=== PATIENT | male | born 1985 | race African-American/Black ===

== ENCOUNTER 2022-02-13 00:34 | Emergency (ER) | payer SELFPAY ==
[~2022-02-13] VITALS: Ht 172.7 cm; Wt 74.8 kg
--- NOTE | 2022-02-13 01:32 | ED General ---
General Chief Complaint: Chest Wall Stated Complaint: CP,FACE & FINGERS NUMB Nursing Triage Note: c/o epigastric pain, numbness/tingling, dizziness in left arm starting approx. 2100 while watching tv. reports pain gone now. still has tingling in fingers on left hand. Source of Information: Patient History of Present Illness Date Seen by Provider: Feb 13, 2022 Time Seen by Provider: 01:00 Initial Comments PT ARRIVES VIA POV FROM HOME STATES AROUND 2129 TONIGHT, WHILE SITTING AND WATCHING TV, HE BEGAN TO HAVE MULTIPLE SYMPTOMS ALL AT ONCE: -CHEST PAIN --"LASTED A SPLIT SECOND" -BROKE OUT IN A SWEAT -FELT DIZZY--"LIKE I WAS FLOATING--NOT SPINNING" -LEFT ARM NUMBNESS AND TINGLING AND "IRRITATING PAIN" THAT WENT ALL THE WAY DOWN TO HIS HAND. THIS IS BETTER ON ARRIVAL TO ER, BUT STATES IT OCCASIONALLY FEELS A LITTLE NUMB AND TINGLY OFF AND ON. -STATES HE HAD A SLIGHT HEADACHE -VISION WAS A LITTLE "OFF" BUT NOT BLURRY VISION OR DOUBLE VISION. -ALSO HAD A LITTLE BIT OF EPIGASTRIC PAIN NO MOTOR DEFICITS NO FEVER NO URI SYMPTOMS NO SHORTNESS OF BREATH NO PALPITATIONS NO SYNCOPE NO NAUSEA/VOMITING/DIARRHEA NO HISTORY OF SIMILAR PT DENIES ANY MEDICAL PROBLEMS, BUT STATES HE NEVER GOES TO THE DR. PT IS ADOPTED AND DOES NOT KNOW ANY FAMILY HISTORY. PT SMOKES 1/2 PPD, DENIES ETOH USE, AND STATES HE HAS NOT USED MARIJUANA IN 2 MONTHS, AND DENIES ANY OTHER DRUG USE PT IS NOT COVID VACCINATED NO KNOWN SICK CONTACTS PT DOES NOT WORK. PCP: NONE STATES HE "JUST MOVED HERE 2 MONTHS AGO" FROM [place], [place]. DID NOT HAVE A DR. THERE EITHER. Allergies and Home Medications Allergies Coded Allergies: No Known Drug Allergies (Unverified , 02/13/22) Patient Home Medication List Home Medication List Reviewed: Yes No Active Prescriptions or Reported Meds Review of Systems Review of Systems Constitutional: see HPI, diaphoresis, dizziness EENTM: see HPI Respiratory: no symptoms reported; No cough, No short of breath Cardiovascular: see HPI, chest pain; No edema, No palpitations, No syncope Gastrointestinal: see HPI; No diarrhea, No nausea, No vomiting; other (EPIGASTRIC PAIN ) Genitourinary: no symptoms reported Musculoskeletal: no symptoms reported; No back pain, No neck pain Skin: no symptoms reported Psychiatric/Neurological: See HPI Hematologic/Lymphatic: No Symptoms Reported Immunological/Allergic: no symptoms reported Past Zvytvxs-Sekklx-Oknyqz Hx Patient Social History Tobacco Use?: Yes Tobacco type used: Cigarettes Smoking Status: Current Everyday Smoker Substance use?: Yes Substance type: Marijuana Alcohol Use?: No Pt feels they are or have been: No Past Medical History Surgery/Hospitalization HX: denies Surgeries: No Respiratory: No Cardiac: No Neurological: No Genitourinary: No Gastrointestinal: No Musculoskeletal: No Endocrine: No HEENT: No Cancer: No Psychosocial: No Integumentary: No Blood Disorders: No Physical Exam Vital Signs Vital Signs - First Documented 02/13/22 00:47 Temp 36.6 Pulse 85 Resp 13 B/P (MAP) 134/96 (109) Pulse Ox 99 O2 Delivery Room Air Capillary Refill : Less Than 3 Seconds Height, Weight, BMI Height: '" Weight: lbs. oz. kg; 25.00 BMI Method: General Appearance: No Apparent Distress, WD/WN, Other (DOES NOT APPEAR ILL OR TO BE IN ANY DISCOMFORT OR DISTRESS. ) HEENT: PERRL/EOMI, TMs Normal, Normal ENT Inspection, Pharynx Normal Neck: Full Range of Motion, Normal Inspection, Non Tender, Supple Respiratory: Normal Breath Sounds, No Accessory Muscle Use, No Respiratory Distress Cardiovascular: Regular Rate, Rhythm, No Edema, No JVD, No Murmur, Normal Peripheral Pulses Gastrointestinal: Non Tender, Soft Back: Normal Inspection Extremity: Normal Inspection Neurologic/Psychiatric: Alert, Oriented x3, No Motor/Sensory Deficits, Normal Mood/Affect, overedger II-XII Norm as Tested; No Abnormal Cerebellar Tests; Other (SPEECH CLEAR, GAIT STEADY. PT TEXTING/PLAYING ON PHONE USING BOTH HANDS THROUGHOUT ER STAY) Skin: Normal Color (PT IS BLACK), Warm/Dry; No Rash; Tattoos/Piercings Progress/Results/Core Measures Suspected Sepsis SIRS Temperature: Pulse: 85 Respiratory Rate: 13 Laboratory Tests 02/13/22 01:20: White Blood Count 9.4 Blood Pressure 134 /96 Mean: 109 Laboratory Tests 02/13/22 01:20: Creatinine 1.05, Platelet Count 222, Total Bilirubin 0.4 Results/Orders Lab Results Laboratory Tests Test 02/13/22 01:20 Range/Units White Blood Count 9.4 4.3-11.0 10^3/uL Red Blood Count 5.47 4.30-5.52 10^6/uL Hemoglobin 12.8 L 13.3-17.7 g/dL Hematocrit 40 40-54 % Mean Corpuscular Volume 72 L 80-99 fL Mean Corpuscular Hemoglobin 23 L 25-34 pg Mean Corpuscular Hemoglobin Concent 32 32-36 g/dL Red Cell Distribution Width 15.9 H 10.0-14.5 % Platelet Count 222 130-400 10^3/uL Mean Platelet Volume 10.6 9.0-12.2 fL Immature Granulocyte % (Auto) 0 % Neutrophils (%) (Auto) 47 42-75 % Lymphocytes (%) (Auto) 42 12-44 % Monocytes (%) (Auto) 9 0-12 % Eosinophils (%) (Auto) 3 0-10 % Basophils (%) (Auto) 0 0-10 % Neutrophils # (Auto) 4.4 1.8-7.8 10^3/uL Lymphocytes # (Auto) 4.0 1.0-4.0 10^3/uL Monocytes # (Auto) 0.8 0.0-1.0 10^3/uL Eosinophils # (Auto) 0.2 0.0-0.3 10^3/uL Basophils # (Auto) 0.0 0.0-0.1 10^3/uL Immature Granulocyte # (Auto) 0.0 0.0-0.1 10^3/uL Urine Color YELLOW Urine Clarity CLEAR Urine pH 6.0 5-9 Urine Specific [place] 1.025 H 1.016-1.022 Urine Protein TRACE H NEGATIVE Urine Glucose (UA) NEGATIVE NEGATIVE Urine Ketones NEGATIVE NEGATIVE Urine Nitrite POSITIVE H NEGATIVE Urine Bilirubin NEGATIVE NEGATIVE Urine Urobilinogen 0.2 < = 1.0 MG/DL Urine Leukocyte Esterase NEGATIVE NEGATIVE Urine RBC (Auto) NEGATIVE NEGATIVE Urine RBC NONE /HPF Urine WBC 5-10 H /HPF Urine Crystals NONE /LPF Urine Bacteria FEW H /HPF Urine Casts PRESENT /LPF Urine Hyaline Casts 5-10 H /LPF Urine Mucus MODERATE H /LPF Urine Culture Indicated YES Sodium Level 140 135-145 MMOL/L Potassium Level 3.9 3.6-5.0 MMOL/L Chloride Level 104 98-107 MMOL/L Carbon Dioxide Level 24 21-32 MMOL/L Anion Gap 12 5-14 MMOL/L Blood Urea Nitrogen 9 7-18 MG/DL Creatinine 1.05 0.60-1.30 MG/DL Estimat Glomerular Filtration Rate 96 BUN/Creatinine Ratio 9 Glucose Level 103 70-105 MG/DL Calcium Level 9.7 8.5-10.1 MG/DL Corrected Calcium 9.4 8.5-10.1 MG/DL Magnesium Level 2.1 1.6-2.4 MG/DL Total Bilirubin 0.4 0.1-1.0 MG/DL Aspartate Amino Transf (AST/SGOT) 31 5-34 U/L Alanine Aminotransferase (ALT/SGPT) 70 H 0-55 U/L Alkaline Phosphatase 61 40-136 U/L Troponin I < 0.028 <0.028 NG/ML Total Protein 7.2 6.4-8.2 GM/DL Albumin 4.4 3.2-4.5 GM/DL Urine Opiates Screen NEGATIVE NEGATIVE Urine Oxycodone Screen NEGATIVE NEGATIVE Urine Methadone Screen NEGATIVE NEGATIVE Urine Propoxyphene Screen NEGATIVE NEGATIVE Urine Barbiturates Screen NEGATIVE NEGATIVE Ur Tricyclic Antidepressants Screen NEGATIVE NEGATIVE Urine Phencyclidine Screen NEGATIVE NEGATIVE Urine Amphetamines Screen NEGATIVE NEGATIVE Urine Methamphetamines Screen NEGATIVE NEGATIVE Urine Benzodiazepines Screen NEGATIVE NEGATIVE Urine Cocaine Screen NEGATIVE NEGATIVE Urine Cannabinoids Screen POSITIVE H NEGATIVE Serum Alcohol < 10 <10 MG/DL SARS-CoV-2 RNA (RT-PCR) Not Detected Not Detecte My Orders Orders - JASKARAN ANDINO DO Ekg Tracing (02/13/22 00:55) Monitor-Rhythm Ecg Trace Only (02/13/22 00:55) Ct Head Wo-R/O Stroke (02/13/22 01:14) Chest 1 View, Ap/Pa Only (02/13/22 01:14) Alcohol (02/13/22 01:14) Cbc With Automated Diff (02/13/22 01:14) Comprehensive Metabolic Panel (02/13/22 01:14) Drug Screen Stat (Urine) (02/13/22 01:14) Magnesium (02/13/22 01:14) Ua Culture If Indicated (02/13/22 01:14) Troponin I [place] (02/13/22 01:14) Covid 19 Inhouse Test (02/13/22 01:14) Isolation Central Supply Req (02/13/22 01:14) Urine Culture (02/13/22 01:20) Neis Wolfgang Dna Urine Test (02/13/22 01:46) Chlamydia Trachomatis Urine (02/13/22 01:46) Vital Signs/I&O 02/13/22 00:47 Temp 36.6 Pulse 85 Resp 13 B/P (MAP) 134/96 (109) Pulse Ox 99 O2 Delivery Room Air Capillary Refill : Less Than 3 Seconds Blood Pressure Mean: 109 Progress Note : Progress Note UNEVENTFUL ER STAY SYMPTOM-FREE AT DISMISSAL PT'S GIRLFRIEND IS IN ROOM LATER, AND SHE REPORTS THAT THIS HAS BEEN AN ONGOING ISSUE FOR AT LEAST A COUPLE OF YEARS PT ADMITS THAT HE IS VERY ANXIOUS ALL THE TIME, AND OFTEN BREATHES VERY DEEP AND FAST AT TIMES AT TIMES WHEN THIS HAPPENS, HIS LIPS AND HIS WHOLE FACE WILL GET NUMB AND TINGLY SOMETIMES IT IS BOTH ARMS, OR SOMETIMES ONE ARM, AND HE WILL HAVE TO BEND HIS ARM UP TO HIS CHEST AND MAKE A FIST AND THEN IT WILL STOP. SYMPTOMS ARE NO DIFFERENT [place] HAS NEVER SOUGHT CARE UNTIL TONIGHT--GIRLFRIEND MADE HIM COME HERE TONIGHT TO GET CHECKED. ECG Initial ECG Impression Date: Feb 13, 2022 Initial ECG Impression Time: 01:08 Initial ECG Rate: 70 Initial ECG Rhythm: Normal Sinus Initial ECG Comparisson: No Previous ECG Available Diagnostic Imaging Comments CXR--NO ACUTE PROCESS, PENDING RADIOLOGIST REVIEW CT HEAD--NO ACUTE PROCESS PER [facility] VIA FAX AT [id number] Reviewed: Reviewed by Me Departure Impression Primary Impression: TRANSIENT PARESTHESIAS Additional Impressions: Anxiety UTI (urinary tract infection) Disposition: 01 HOME, SELF-CARE Condition: Improved Departure-Patient Inst. Decision time for Depature: 03:50 Referrals: NO,LOCAL PHYSICIAN (PCP) Primary Care Physician [facility] Patient Instructions: Anxiety, Adult (DC), Paresthesia (DC), Urinary Tract Infection, Adult ED Add. Discharge Instructions: HOME, REST FOLLOW UP WITH [facility] OR DR OF CHOICE FOR FURTHER CARE, RETURN TO ER IF SYMPTOMS WORSEN All discharge instructions reviewed with patient and/or family. Voiced understanding. Scripts Ciprofloxacin HCl (Ciprofloxacin HCl) 500 Mg Tablet 500 MG PO BID, #14 TAB Prov: JASKARAN ANDINO DO 02/13/22 JASKARAN ANDINO DO Feb 13, 2022 01:32
[2022-02-13 01:33] LABS: BASOPHILS % (AUTO) 0 % (0-10); BILIRUBIN,URINE NEGATIVE (NEGATIVE); CLARITY,URINE CLEAR; COLOR,URINE YELLOW; EOSINOPHILS # (AUTO) 0.2 10^3/uL (0.0-0.3); EOSINOPHILS % (AUTO) 3 % (0-10); GLUCOSE, URINE (UA) NEGATIVE (NEGATIVE); HEMATOCRIT 40 % (40-54); HEMOGLOBIN 12.8 g/dL (13.3-17.7); KETONES,URINE NEGATIVE (NEGATIVE); LEUKOCYTE ESTERASE ,URINE NEGATIVE (NEGATIVE); LYMPHOCYTES % (AUTO) 42 % (12-44); MEAN CORPUSCULAR HEMOGLOBIN 23 pg (25-34); MEAN CORPUSCULAR HGB CONC 32 g/dL (32-36); MEAN CORPUSCULAR VOLUME 72 fL (80-99); MEAN PLATELET VOLUME 10.6 fL (9.0-12.2); MONOCYTES # (AUTO) 0.8 10^3/uL (0.0-1.0); MONOCYTES % (AUTO) 9 % (0-12); NEUTROPHILS # (AUTO) 4.4 10^3/uL (1.8-7.8); NEUTROPHILS % (AUTO) 47 % (42-75); NITRITE,URINE POSITIVE (NEGATIVE); PLATELET COUNT 222 10^3/uL (130-400); PROTEIN,URINE TRACE (NEGATIVE); WHITE BLOOD COUNT 9.4 10^3/uL (4.3-11.0)
[2022-02-13 01:41] LABS: BACTERIA,URINE FEW /HPF
[2022-02-13 01:42] LABS: CHLORIDE 104 MMOL/L (98-107); POTASSIUM 3.9 MMOL/L (3.6-5.0); SODIUM 140 MMOL/L (135-145)
[2022-02-13 01:43] LABS: ALBUMIN 4.4 GM/DL (3.2-4.5)
[2022-02-13 01:44] LABS: CALCIUM 9.7 MG/DL (8.5-10.1)
[2022-02-13 01:45] LABS: GLUCOSE 103 MG/DL (70-105); TOTAL PROTEIN 7.2 GM/DL (6.4-8.2)
[2022-02-13 01:46] LABS: CARBON DIOXIDE 24 MMOL/L (21-32)
[2022-02-13 01:47] LABS: AMPHETAMINE SCREEN, URINE NEGATIVE (NEGATIVE); BARBITURATE SCREEN URINE NEGATIVE (NEGATIVE); BENZODIAZEPINES SCREEN URINE NEGATIVE (NEGATIVE); BILIRUBIN,TOTAL 0.4 MG/DL (0.1-1.0); CANNABINOID SCREEN, URINE POSITIVE (NEGATIVE); COCAINE SCREEN URINE NEGATIVE (NEGATIVE); METHADONE STAT NEGATIVE (NEGATIVE); OPIATE SCREEN URINE NEGATIVE (NEGATIVE); OXYCODONE STAT NEGATIVE (NEGATIVE); PROPOXYPHENE STAT NEGATIVE (NEGATIVE); TRICYCLIC ANTIDEPRESSANTS SCRE NEGATIVE (NEGATIVE)
[2022-02-13 01:49] LABS: ALKALINE PHOSPHATASE 61 U/L (40-136); CREATININE SERUM 1.05 MG/DL (0.60-1.30); GFR ESTIMATED 96
[2022-02-13 01:50] LABS: BUN/CREATININE RATIO 9
[2022-02-13 01:52] LABS: ALANINE AMINOTRANSFERASE 70 U/L (0-55); MAGNESIUM 2.1 MG/DL (1.6-2.4)
[2022-02-13 03:55] VITALS: BP 129/86
[2022-02-13] MEDS ORDERED: CIPR500T5 PO (03:56)
--- NOTE | 2022-02-13 06:46 | Diagnostic Imaging Report ---
INDICATION: Epigastric pain, numbness, tingling, dizziness and left arm.. TECHNIQUE: Single view chest 2:03 AM. CORRELATION STUDY: None FINDINGS: The heart size, mediastinal configuration and pulmonary vascularity are within normal limits. The lungs are clear with no consolidating infiltrate. There is no significant effusion or pneumothorax. IMPRESSION: 1. Negative appearing single view chest. Dictated by: Dictated on workstation # [id number]
--- NOTE | 2022-02-13 06:46 | Diagnostic Imaging Report ---
PROCEDURE: CT head wo r/o stroke. TECHNIQUE: Multiple contiguous axial images were obtained through the brain without the use of intravenous contrast. Auto Exposure Controls were utilized during the CT exam to meet ALARA standards for radiation dose reduction. INDICATION: 36-year-old male, epigastric pain, numbness, tingling, dizziness and left arm starting several hours earlier. Symptoms have now resolved. CORRELATION: None FINDINGS: There is no midline shift or mass effect. The ventricles and sulci are unremarkable. No evidence for acute intracranial hemorrhage, abnormal extra-axial fluid collections or cerebral edema is present. The basilar cisterns are unremarkable. The bony calvarium is intact. The visualized paranasal sinuses and mastoid air cells are clear. IMPRESSION: Negative appearing noncontrast CT of the head. Initial report was provided by Luis. Dictated by: Dictated on workstation # [id number]
== END 2022-02-13 03:57 | disposition home or self-care (01) ==
LOC: ER 00:38
DX: F41.9 Anxiety disorder, unspecified (principal); N39.0 Urinary tract infection, site not specified; R20.2 Paresthesia of skin; F17.210 Nicotine dependence, cigarettes, uncomplicated; Z20.822 Contact with and (suspected) exposure to COVID-19
CPT/HCPCS: 70450; 71045; 80053; 80306; 81000; 83735; 84484; 85025; 87088; 87491; 87591; 87636; 93005; 93041; 99284; G0480; 36415; 80320

== ENCOUNTER 2022-05-12 15:45 | Emergency (ER) | payer BC ==
[~2022-05-12] VITALS: Ht 172.7 cm; Wt 70.3 kg
[~2022-05-12 15:45] MED LIST: CIPR500T5 PO
--- NOTE | 2022-05-12 16:45 | ED Respiratory ---
General Chief Complaint: Abdominal/GI Problems Stated Complaint: VOMITING, DIARRHEA, HEADACHE Nursing Triage Note: PT AMB TO RM 9 WITH COMPLAINT OF ABD PAIN, DIARRHEA, VOMITING AND HEADACHE FOR TWO DAYS. History of Present Illness Date Seen by Provider: May 12, 2022 Time Seen by Provider: 16:00 Initial Comments 36-year-old male presents with complaints of intermittent abdominal pain, diarrhea, headache and vomiting. He last vomited yesterday. Denies cough or fever. Reports no history of COVID vaccination or previous COVID infection. Timing/Duration: intermittent Severity: mild Prior Episodes/Possible Cause: no prior episodes Associated Symptoms: No cough, No fever/chills; muscle aches; No shortness of breath Allergies and Home Medications Allergies Coded Allergies: No Known Drug Allergies (Unverified , 02/13/22) Patient Home Medication List Home Medication List Reviewed: Yes Ciprofloxacin HCl (Ciprofloxacin HCl) 500 Mg Tablet, 500 MG PO BID Prescribed by: JASKARAN ANDINO on 02/13/22 0356 Review of Systems Review of Systems Constitutional: no symptoms reported, see HPI Respiratory: see HPI, cough; No dyspnea on exertion, No short of breath Cardiovascular: no symptoms reported, see HPI Gastrointestinal: see HPI; No abdominal pain; nausea, vomiting All Other Systems Reviewed Negative Unless Noted: Yes Past Qapzanf-Zkqazm-Lskuqa Hx Patient Social History Tobacco Use?: Yes Tobacco type used: Cigarettes Smoking Status: Current Everyday Smoker Use of E-Cig and/or Vaping dev: No Substance use?: No Alcohol Use?: No Pt feels they are or have been: No Immunizations Up To Date First/Initial COVID19 Vaccinat: NO Past Medical History Surgery/Hospitalization HX: denies Surgeries: No Respiratory: No Cardiac: No Neurological: No Genitourinary: No Gastrointestinal: No Musculoskeletal: No Endocrine: No HEENT: No Cancer: No Psychosocial: No Integumentary: No Blood Disorders: No Family Medical History Reviewed Nursing Family Hx Physical Exam Vital Signs - First Documented 05/12/22 05/12/22 15:50 16:54 Temp 36.7 Pulse 67 Resp 17 B/P (MAP) 137/100 (112) Pulse Ox 100 O2 Delivery Room Air Capillary Refill : Less Than 3 Seconds Height: '" Weight: lbs. oz. kg; 23.00 BMI Method: General Appearance: WD/WN, no apparent distress HEENT: PERRL/EOMI, normal ENT inspection, TMs normal, pharynx normal Neck: non-tender, full range of motion, supple, normal inspection Respiratory: chest non-tender, lungs clear, normal breath sounds Cardiovascular: normal peripheral pulses, regular rate, rhythm Extremities: normal range of motion, non-tender, normal inspection Neurologic/Psychiatric: no motor/sensory deficits, alert, normal mood/affect Skin: normal color, warm/dry Progress/Results/Core Measures Suspected Sepsis SIRS Temperature: Pulse: 67 Respiratory Rate: 17 Blood Pressure 137 /100 Mean: 112 Results/Orders Lab Results Laboratory Tests Test 05/12/22 15:58 Range/Units Influenza Type A (RT-PCR) Not Detected Not Detecte Influenza Type B (RT-PCR) Not Detected Not Detecte SARS-CoV-2 RNA (RT-PCR) Detected H Not Detecte My Orders Orders - SUZETTE MEEK Covid 19 Inhouse Test (05/12/22 15:51) Influenza A And B By Pcr (05/12/22 15:51) Vital Signs/I&O 05/12/22 05/12/22 15:50 16:54 Temp 36.7 Pulse 67 65 Resp 17 17 B/P (MAP) 137/100 (112) 139/100 Pulse Ox 100 100 O2 Delivery Room Air Room Air Capillary Refill : Less Than 3 Seconds Blood Pressure Mean: 112 Departure Impression Primary Impression: COVID-19 Disposition: 01 HOME, SELF-CARE Condition: Improved Departure-Patient Inst. Decision time for Depature: 16:30 Referrals: [facility],LOCAL PHYSICIAN (PCP) Primary Care Physician Patient Instructions: COVID-19 (DC) Add. Discharge Instructions: Quarantine at home for 5 days, then wear mask for 5 days. Take Aspirin 81 mg once daily. Take an immune vitamin, 1 daily. Increase water intake, 16 ounces every 2 hours while awake. Ambulate frequently. Avoid others in your home, they should wear a mask for the next 5-7 days. Only test if symptomatic, can be done through walk in care or with your primary care provider. Return to the emergency department for new, urgent healthcare needs. All discharge instructions reviewed with patient and/or family. Voiced understanding. SUZETTE MEEK May 12, 2022 16:45
[2022-05-12 16:54] VITALS: BP 139/100
== END 2022-05-12 16:54 | disposition home or self-care (01) ==
LOC: EDUNIT# 15:45 → ER 15:46
DX: U07.1 COVID-19 (principal); F17.210 Nicotine dependence, cigarettes, uncomplicated; Z28.310 Unvaccinated for COVID-19
CPT/HCPCS: 87636; 99283

== ENCOUNTER 2023-04-06 10:40 | Emergency (ER) | payer BC, MEDICAID ==
--- NOTE | 2023-04-06 11:14 | ED Chest Pain ---
General Chief Complaint: Chest Pain Stated Complaint: CHEST PRESSURE | SOB | HEADACHE | FOR TWO WEEKS Nursing Triage Note: PT AMB TO RM 2 WITH C/O INT CP AND CHEST PRESSURE X2 WEEKS. PT FEELS THE PAIN IN HIS L CHEST TO HIS L AXILLA. PT SEEN AT [facility] LAST WEEK AND GIVEN NAPROXEN. PT ALSO STATES HE GETS DIZZY AND COMBS WITH THE CP. HOT SHOWERS HELP THE PAIN Source: patient Exam Limitations: no limitations History of Present Illness Date Seen by Provider: Apr 06, 2023 Time Seen by Provider: 10:53 Initial Comments This 37-year-old young man presents to the emergency room with complaints of chest pain and pressure in the left upper and lateral chest. The pain has been chronic and intermittent over the past year but worse over the past couple of weeks. The episodes of pain seem to come on randomly and without trigger. They can occur while active or at rest. He typically has associated sharp headaches. He has also had some uncomfortable numbness and tingling in his hands and feet during the episodes. He reports being seen at the [facility] clinic and being told that he had "bad circulation" causing the symptoms. He reports he was given naproxen for this condition which she states did help some of the uncomfortable feeling in the extremities. He does admit to being anxious during the episodes but he does not believe the episodes are triggered by anxiety. He sometimes has a vertiginous type of dizziness with sweating while standing. He states hot donna wers tend to help this. Eating seems to make his symptoms worse. He denies any nausea, vomiting, or diarrhea. He does sometimes have mild shortness of breath. He denies cough. He quit smoking about 1 week ago but has treated with a few cigarettes since then. He denies vaping or alcohol consumption. He does use marijuana but has not smoked any marijuana in over a month. He reports having a heart monitor for a long period of time as a child but does not know what that was for. His primary care provider is in [place]. He was assigned the provider by insurance but has not seen him yet. He is presently unemployed. He is accompanied by a female significant other who contributes to the history. Allergies and Home Medications Allergies Coded Allergies: No Known Drug Allergies (Unverified , 02/13/22) Patient Home Medication List Home Medication List Reviewed: Yes Ciprofloxacin HCl (Ciprofloxacin HCl) 500 Mg Tablet, 500 MG PO BID Prescribed by: JASKARAN ANDINO on 02/13/22 0356 Review of Systems Review of Systems Constitutional: see HPI EENTM: See HPI Respiratory: See HPI Cardiovascular: See HPI Gastrointestinal: No Symptoms Reported Genitourinary: No Symptoms Reported Musculoskeletal: see HPI Skin: no symptoms reported Psychiatric/Neurological: See HPI Endocrine: No Symptoms Reported Hematologic/Lymphatic: No Symptoms Reported Past Cjftnas-Hqmpko-Kcwngm Hx Patient Social History Tobacco Use?: Yes (Has nearly quit smoking but still smokes a few cigarettes occasionally) Smoking Status: Former Smoker Substance use?: Yes Substance type: Marijuana Alcohol Use?: No Immunizations Up To Date First/Initial COVID19 Vaccinat: NO Second COVID19 Vaccination Amos: NO Third COVID19 Vaccination Date: NO Past Medical History Surgery/Hospitalization HX: denies Surgeries: No Respiratory: No Cardiac: No Neurological: No Genitourinary: No Gastrointestinal: No Musculoskeletal: No Endocrine: No HEENT: No Cancer: No Psychosocial: No Integumentary: No Blood Disorders: No Physical Exam Vital Signs Vital Signs - First Documented 04/06/23 10:48 Temp 36.8 Pulse 98 Resp 16 B/P (MAP) 139/77 (97) Pulse Ox 98 O2 Delivery Room Air Capillary Refill : Height, Weight, BMI Height: '" Weight: lbs. oz. 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, Other (Slightly anxious) Skin: Normal Color, Warm/Dry, Other (Normal capillary refill and sensation in the fingers) Progress/Results/Core Measures Results/Orders Lab Results Laboratory Tests Test 04/06/23 10:58 04/06/23 12:15 Range/Units White Blood Count 9.8 4.3-11.0 10^3/uL Red Blood Count 5.92 H 4.30-5.52 10^6/uL Hemoglobin 13.9 13.3-17.7 g/dL Hematocrit 44 40-54 % Mean Corpuscular Volume 74 L 80-99 fL Mean Corpuscular Hemoglobin 24 L 25-34 pg Mean Corpuscular Hemoglobin Concent 32 32-36 g/dL Red Cell Distribution Width 17.7 H 10.0-14.5 % Platelet Count 234 130-400 10^3/uL Mean Platelet Volume 11.1 9.0-12.2 fL Immature Granulocyte % (Auto) 0 % Neutrophils (%) (Auto) 52 42-75 % Lymphocytes (%) (Auto) 33 12-44 % Monocytes (%) (Auto) 11 0-12 % Eosinophils (%) (Auto) 4 0-10 % Basophils (%) (Auto) 0 0-10 % Neutrophils # (Auto) 5.1 1.8-7.8 10^3/uL Lymphocytes # (Auto) 3.2 1.0-4.0 10^3/uL Monocytes # (Auto) 1.1 H 0.0-1.0 10^3/uL Eosinophils # (Auto) 0.4 H 0.0-0.3 10^3/uL Basophils # (Auto) 0.0 0.0-0.1 10^3/uL Immature Granulocyte # (Auto) 0.0 0.0-0.1 10^3/uL Prothrombin Time 12.7 12.2-14.7 SEC INR Comment 0.9 0.8-1.4 Activated Partial Thromboplast Time 27 24-35 SEC D-Dimer 1.14 H 0.00-0.49 UG/ML Sodium Level 136 135-145 MMOL/L Potassium Level 4.3 3.6-5.0 MMOL/L Chloride Level 105 98-107 MMOL/L Carbon Dioxide Level 21 21-32 MMOL/L Anion Gap 10 5-14 MMOL/L Blood Urea Nitrogen 17 7-18 MG/DL Creatinine 0.91 0.60-1.30 MG/DL Estimat Glomerular Filtration Rate 113 BUN/Creatinine Ratio 19 Glucose Level 105 70-105 MG/DL Calcium Level 10.1 8.5-10.1 MG/DL Corrected Calcium 8.5-10.1 MG/DL Magnesium Level 2.1 1.6-2.4 MG/DL Total Bilirubin 0.4 0.1-1.0 MG/DL Aspartate Amino Transf (AST/SGOT) 46 H 5-34 U/L Alanine Aminotransferase (ALT/SGPT) 109 H 0-55 U/L Alkaline Phosphatase 79 40-136 U/L Myoglobin 42.6 10.0-92.0 NG/ML Troponin I < 0.028 <0.028 NG/ML Total Protein 7.9 6.4-8.2 GM/DL Albumin 4.8 H 3.2-4.5 GM/DL Serum Alcohol < 10 <10 MG/DL Urine Opiates Screen NEGATIVE NEGATIVE Urine Oxycodone Screen NEGATIVE NEGATIVE Urine Methadone Screen NEGATIVE NEGATIVE Urine Propoxyphene Screen NEGATIVE NEGATIVE Urine Barbiturates Screen NEGATIVE NEGATIVE Ur Tricyclic Antidepressants Screen NEGATIVE NEGATIVE Urine Phencyclidine Screen NEGATIVE NEGATIVE Urine Amphetamines Screen NEGATIVE NEGATIVE Urine Methamphetamines Screen NEGATIVE NEGATIVE Urine Benzodiazepines Screen NEGATIVE NEGATIVE Urine Cocaine Screen NEGATIVE NEGATIVE Urine Cannabinoids Screen POSITIVE H NEGATIVE My Orders Orders - TRISHA BUTT MD Ekg Tracing (04/06/23 10:46) Cbc With Automated Diff (04/06/23 11:13) Magnesium (04/06/23 11:13) Comprehensive Metabolic Panel (04/06/23 11:13) Myoglobin Serum (04/06/23 11:13) Protime With Inr (04/06/23 11:13) Partial Thromboplastin Time (04/06/23 11:13) O2 (04/06/23 11:13) Monitor-Rhythm Ecg Trace Only (04/06/23 11:13) Ed Iv/Invasive Line Start (04/06/23 11:13) Troponin I Elliott (04/06/23 11:13) Alcohol (04/06/23 11:13) Drug Screen Stat (Urine) (04/06/23 11:13) Fibrin Degradation Products (04/06/23 11:13) Chest Pa/Lat (2 View) (04/06/23 11:14) Orthostatic Vital Signs (Adult (04/06/23 11:56) Ct Angio Chest W (R/O Pe) (04/06/23 12:45) Iohexol Injection (Omnipaque 350 Mg/Ml 1 (04/06/23 13:00) Received Contrast (Hold Metformin- Contr (04/06/23 13:00) Ns (Ivpb) 100 Ml (Sodium Chloride 0.9% 1 (04/06/23 13:00) Medications Given in ED Vital Signs/I&O 04/06/23 04/06/23 04/06/23 10:48 12:26 14:47 Temp 36.8 36.8 Pulse 98 75 70 81 85 Resp 16 16 B/P (MAP) 139/77 (97) 131/89 (103) 122/83 131/101 (111) 129/88 (102) Pulse Ox 98 98 O2 Delivery Room Air Room Air Blood Pressure Mean: 97 Progress Progress Note : Progress Note Patient was interviewed and examined at 1053. His significant other contributed to the history. Vital signs were unremarkable. Heart rate was borderline tachycardic. Patient was not experiencing one of the episodes during his ER stay. EKG was reviewed and I interpreted it as unremarkable as noted below. Labs were reviewed and were notable for elevated D-dimer which was followed by CT angiogram. CT angiogram revealed no acute pathology to explain his symptoms. See radiologist's report below which was reviewed by me. Labs including CBC, CMP, troponin, magnesium, and coag panel were all clinically unremarkable. Transaminases were minimally elevated. Based on history and ER work-up, it appears that his episodes are likely caused by multifactorial triggers. It seems he has some type of chest pain that is likely noncardiac in nature that triggers episodes of anxiety. We discussed the possible causes of his symptoms and ways to manage them. We also discussed approach to follow-up. See discharge instructions for further discussion. Initial ECG Impression Date: Apr 06, 2023 Initial ECG Impression Time: 10:53 Initial ECG Rate: 75 Initial ECG Rhythm: Normal Sinus Initial ECG Intervals: Normal Initial ECG Impression: Normal Comment Normal sinus rhythm with no ST elevation or depression. No abnormal intervals or axis deviation. Diagnostic Imaging Diagonstic Imaging: Xray Plain Films/CT/US/NM/MRI: chest Comments NAME: ANN,NATALIO Randall [facility] REC#: [id number] PT STATUS: REG ER : 1985 PHYSICIAN: TRISHA BUTT MD ADMIT DATE: 04/06/23/ER Signed Date of Exam:04/06/23 CHEST PA/LAT (2 VIEW) INDICATION: Chest pain and pressure. TECHNIQUE: PA and lateral views of the chest were obtained. COMPARISON: No previous study is available for comparison at this time. FINDINGS: Heart size and pulmonary vasculature are within normal limits. The lungs are clear bilaterally. IMPRESSION: Unremarkable chest. Dictated by: Dictated on workstation # [id number] Dict: 04/06/23 1158 Trans: 04/06/23 1259 [id number] Interpreted by: KASSY GILL MD Electronically signed by: KASSY GILL MD 04/06/23 1259 Diagonstic Imaging: CT Plain Films/CT/US/NM/MRI: chest Comments NAME: NATALIO JUAREZ [facility] REC#: [id number] PT STATUS: REG ER : 1985 PHYSICIAN: TRISHA BUTT MD ADMIT DATE: 04/06/23/ER Signed Date of Exam:04/06/23 CT ANGIO CHEST W (R/O PE) PROCEDURE: CT angiography Chest TECHNIQUE: After intravenous administration of contrast, thin section axial CT angiography of the chest was performed. 3D MIP reconstructions were made. All CT scans use one or more of the following dose optimizing techniques: automated exposure control, MA and/or KvP adjustment based on a patient size and exam type, or iterative reconstruction. INDICATION: Chest pain with elevated d-dimer. COMPARISON: None available. FINDINGS: Vasculature: No pulmonary emboli. No CT evidence of pulmonary hypertension or right ventricular strain. Thoracic aorta is normal in caliber. No aortic dissection or pseudoaneurysm. Heart and mediastinum: Visualized thyroid is normal. No supraclavicular, axillary, or intra-thoracic lymphadenopathy. The heart is normal in size without pericardial effusion. Pleura: No pleural effusion or pneumothorax. Lungs and airway: No endoluminal lesion in the trachea or central bronchi. No pneumonia or edema. No suspicious pulmonary nodules. Upper abdomen: No concerning abnormality in the upper abdomen. Musculoskeletal: No concerning osseous lesion. IMPRESSION: 1. No acute cardiopulmonary process. Specifically, no pulmonary emboli or acute aortic syndrome. Dictated by: Dictated on workstation # [id number] Dict: 04/06/23 1327 Trans: 04/06/23 1331 [facility] [id number] Interpreted by: GARRETT SNYDER MD Electronically signed by: GARRETT SNYDER MD 04/06/23 1331 Departure Impression Primary Impression: Atypical chest pain Additional Impressions: Recurrent headache Anxiety Disposition: 01 HOME, SELF-CARE Condition: Stable Departure-Patient Inst. Decision time for Depature: 14:36 Referrals: NO,LOCAL PHYSICIAN (PCP/Family) Primary Care Physician Patient Instructions: Anxiety, Adult ED, Chest Pain Add. Discharge Instructions: The exact cause of your chest pain is uncertain. Based on your work-up in the emergency room, no life-threatening or dangerous cause was identified. Please follow-up with your primary care provider soon as possible. Discuss further opportunities for evaluating your chest pain. A potline monitor could be obtained on an outpatient basis to monitor what your heart rate and rhythm is like during one of your episodes. When you have the episodes of pain, try to use self calming tactics to reduce the anxiety response. You may also try taking Tylenol (acetaminophen) and/or ibuprofen for the pain. The chest pain may be musculoskeletal in nature and would hopefully improve with Tylenol and ibuprofen. Refrain from smoking any substances including tobacco, vaping, marijuana, etc. Return to care if you have worsening symptoms despite following these instructions. All discharge instructions reviewed with patient and/or family. Voiced understanding. TRISHA BUTT MD Apr 06, 2023 11:14
[2023-04-06 11:20] LABS: BASOPHILS % (AUTO) 0 % (0-10); EOSINOPHILS # (AUTO) 0.4 10^3/uL (0.0-0.3); EOSINOPHILS % (AUTO) 4 % (0-10); HEMATOCRIT 44 % (40-54); HEMOGLOBIN 13.9 g/dL (13.3-17.7); LYMPHOCYTES # (AUTO) 3.2 10^3/uL (1.0-4.0); LYMPHOCYTES % (AUTO) 33 % (12-44); MEAN CORPUSCULAR HEMOGLOBIN 24 pg (25-34); MEAN CORPUSCULAR HGB CONC 32 g/dL (32-36); MEAN CORPUSCULAR VOLUME 74 fL (80-99); MEAN PLATELET VOLUME 11.1 fL (9.0-12.2); MONOCYTES # (AUTO) 1.1 10^3/uL (0.0-1.0); MONOCYTES % (AUTO) 11 % (0-12); NEUTROPHILS # (AUTO) 5.1 10^3/uL (1.8-7.8); NEUTROPHILS % (AUTO) 52 % (42-75); PLATELET COUNT 234 10^3/uL (130-400); WHITE BLOOD COUNT 9.8 10^3/uL (4.3-11.0)
[2023-04-06 11:25] LABS: ALBUMIN 4.8 GM/DL (3.2-4.5); CHLORIDE 105 MMOL/L (98-107); POTASSIUM 4.3 MMOL/L (3.6-5.0); SODIUM 136 MMOL/L (135-145)
[2023-04-06 11:26] LABS: CALCIUM 10.1 MG/DL (8.5-10.1)
[2023-04-06 11:28] LABS: GLUCOSE 105 MG/DL (70-105); TOTAL PROTEIN 7.9 GM/DL (6.4-8.2)
[2023-04-06 11:29] LABS: CARBON DIOXIDE 21 MMOL/L (21-32)
[2023-04-06 11:30] LABS: BILIRUBIN,TOTAL 0.4 MG/DL (0.1-1.0)
[2023-04-06 11:31] LABS: ALKALINE PHOSPHATASE 79 U/L (40-136); CREATININE SERUM 0.91 MG/DL (0.60-1.30); GFR ESTIMATED 113
[2023-04-06 11:33] LABS: BUN/CREATININE RATIO 19
[2023-04-06 11:34] LABS: ALANINE AMINOTRANSFERASE 109 U/L (0-55); MAGNESIUM 2.1 MG/DL (1.6-2.4)
[2023-04-06 11:40] LABS: INR 0.9 (0.8-1.4); PROTHROMBIN TIME PATIENT 12.7 SEC (12.2-14.7)
[2023-04-06 11:49] LABS: FIBRIN DEGRADATION PRODUCTS 1.14 UG/ML (0.00-0.49)
--- NOTE | 2023-04-06 12:01 | Diagnostic Imaging Report ---
INDICATION: Chest pain and pressure. TECHNIQUE: PA and lateral views of the chest were obtained. COMPARISON: No previous study is available for comparison at this time. FINDINGS: Heart size and pulmonary vasculature are within normal limits. The lungs are clear bilaterally. IMPRESSION: Unremarkable chest. Dictated by: Dictated on workstation # [id number]
[2023-04-06 12:26] VITALS: BP_SYST 129; BP_SYST 131; BP_DIAS 101; BP_DIAS 88; BP_DIAS 89
[2023-04-06 12:33] LABS: AMPHETAMINE SCREEN, URINE NEGATIVE (NEGATIVE); BARBITURATE SCREEN URINE NEGATIVE (NEGATIVE); CANNABINOID SCREEN, URINE POSITIVE (NEGATIVE); COCAINE SCREEN URINE NEGATIVE (NEGATIVE); METHADONE STAT NEGATIVE (NEGATIVE); OPIATE SCREEN URINE NEGATIVE (NEGATIVE); OXYCODONE STAT NEGATIVE (NEGATIVE); PROPOXYPHENE STAT NEGATIVE (NEGATIVE); TRICYCLIC ANTIDEPRESSANTS SCRE NEGATIVE (NEGATIVE)
[2023-04-06] MEDS ORDERED: HOLD METFORMIN - RECEIVED CONTRAST 20 ML VIAL IV SCH (13:00)
[2023-04-06] MEDS ORDERED: NS 100 ML (IVPB) BAG IV ONE (13:00)
[2023-04-06] MEDS ORDERED: IOHEXOL 350 MG/ML 100 ML (OMNIPAQUE 350) VIAL IV ONE (13:00)
--- NOTE | 2023-04-06 13:32 | Diagnostic Imaging Report ---
PROCEDURE: CT angiography Chest TECHNIQUE: After intravenous administration of contrast, thin section axial CT angiography of the chest was performed. 3D MIP reconstructions were made. All CT scans use one or more of the following dose optimizing techniques: automated exposure control, MA and/or KvP adjustment based on a patient size and exam type, or iterative reconstruction. INDICATION: Chest pain with elevated d-dimer. COMPARISON: None available. FINDINGS: Vasculature: No pulmonary emboli. No CT evidence of pulmonary hypertension or right ventricular strain. Thoracic aorta is normal in caliber. No aortic dissection or pseudoaneurysm. Heart and mediastinum: Visualized thyroid is normal. No supraclavicular, axillary, or intra-thoracic lymphadenopathy. The heart is normal in size without pericardial effusion. Pleura: No pleural effusion or pneumothorax. Lungs and airway: No endoluminal lesion in the trachea or central bronchi. No pneumonia or edema. No suspicious pulmonary nodules. Upper abdomen: No concerning abnormality in the upper abdomen. Musculoskeletal: No concerning osseous lesion. IMPRESSION: 1. No acute cardiopulmonary process. Specifically, no pulmonary emboli or acute aortic syndrome. Dictated by: Dictated on workstation # [id number]
[2023-04-06 14:47] VITALS: BP 122/83
== END 2023-04-06 14:48 | disposition home or self-care (01) ==
LOC: EDUNIT# 10:40 → ER 10:43
DX: R07.89 Other chest pain (principal); R51.9 Headache, unspecified; F41.9 Anxiety disorder, unspecified; Z87.891 Personal history of nicotine dependence; Z28.310 Unvaccinated for COVID-19
CPT/HCPCS: 36415; 71046; 71275; 80053; 80306; 80320; 83735; 83874; 84484; 85025; 85379; 85610; 85730; 93005; 93041